=== PATIENT | female | born 1990 | race Caucasian/White ===

== ENCOUNTER → 2017-03-02 | Outpatient (CLI) | payer OTHER ==
[~2017-03-02] MED LIST: OXYC-360 PO; PRENTAB62 PO
== END ==
LOC: HPND 14:23
PROVIDERS: ATTEND Obstetrics & Gynecology
DX: O10.911 Unspecified pre-existing hypertension complicating pregnancy, first trimester (principal); O36.80X0 Pregnancy with inconclusive fetal viability, not applicable or unspecified; O12.11 Gestational proteinuria, first trimester
CPT/HCPCS: 76801

== ENCOUNTER → 2017-04-06 | Outpatient (CLI) | payer OTHER | LOC: HPND 11:56 | PROVIDERS: ATTEND Obstetrics & Gynecology | DX: O10.911 Unspecified pre-existing hypertension complicating pregnancy, first trimester (principal); O12.11 Gestational proteinuria, first trimester | CPT/HCPCS: 76811 ==

== ENCOUNTER → 2017-04-18 | Outpatient (CLI) | payer OTHER ==
--- NOTE | 2017-04-18 15:32 | RADRPT ---
EXAM DATE/TIME: 04/18/2017 14:22 [place] COMPARISON: No previous studies available for comparison. INDICATIONS : Hypertension. MEDICAL HISTORY : Hypertension. Asthma. Fainting. Pre-eclampsia. SURGICAL HISTORY : ENCOUNTER: Initial ACUITY: 1 month PAIN SCORE: 0/10 LOCATION: Bilateral flank MEASUREMENTS: RIGHT KIDNEY: 9.1 x 6.0 x 6.2 cm LEFT KIDNEY: 10.1 x 6.4 x 4.7 cm FINDINGS: RIGHT KIDNEY: Renal cortex is normal in thickness and echotexture. There is mild dilatation of the right renal col lecting system. LEFT KIDNEY: Renal cortex is normal in thickness and echotexture. No hydronephrosis, stone, or mass. BLADDER: Within normal limits given the degree of distension. The patient is . CONCLUSION: Mild dilatation of the right collecting system. The left kidney appears normal. Freddie Bo MD on April 18, 2017 at 15:24 Board Certified Radiologist. This report was verified electronically.
--- NOTE | 2017-04-19 16:45 | EKG ---
Date Performed: 04/18/2017 Time Performed: 13:49:40 PTAGE: 26 years EKG: Sinus rhythm WITH SHORT TN INTERVAL Since previous tracing, no significant change noted BORDERLINE ECG PREVIOUS TRACING : 12/09/2006 11.48 DOCTOR: Tg Olivier Interpretating Date/Time 04/19/2017 17:20:49
== END ==
LOC: HCAV 13:33
PROVIDERS: ATTEND Obstetrics & Gynecology
DX: O13.9 Gestational [pregnancy-induced] hypertension without significant proteinuria, unspecified trimester (principal); R94.31 Abnormal electrocardiogram [ECG] [EKG]
CPT/HCPCS: 76775; 93005

== ENCOUNTER → 2017-05-04 | Outpatient (CLI) | payer OTHER | LOC: HPND 13:11 | PROVIDERS: ATTEND Obstetrics & Gynecology | DX: O99.322 Drug use complicating pregnancy, second trimester (principal); O10.912 Unspecified pre-existing hypertension complicating pregnancy, second trimester; O09.292 Supervision of pregnancy with other poor reproductive or obstetric history, second trimester | CPT/HCPCS: 76816; 76825; 76827; 93325 ==

== ENCOUNTER → 2017-06-02 | Outpatient (CLI) | payer OTHER | LOC: HPND 15:02 | PROVIDERS: ATTEND Obstetrics & Gynecology | DX: O40.2XX0 Polyhydramnios, second trimester, not applicable or unspecified (principal); O10.012 Pre-existing essential hypertension complicating pregnancy, second trimester; Z3A.26 26 weeks gestation of pregnancy | CPT/HCPCS: 76816 ==

== ENCOUNTER → 2017-06-30 | Outpatient (CLI) | payer OTHER | LOC: HPND 15:05 | PROVIDERS: ATTEND Obstetrics & Gynecology | DX: O09.292 Supervision of pregnancy with other poor reproductive or obstetric history, second trimester (principal); O10.912 Unspecified pre-existing hypertension complicating pregnancy, second trimester | CPT/HCPCS: 76816 ==